=== PATIENT | female | born 1965 | race Caucasian/White ===

== ENCOUNTER 2024-07-27 11:04 | Emergency (ER) | payer MEDICAID, OTHER ==
[~2024-07-27] VITALS: Ht 157.5 cm; Wt 72.7 kg
[2024-07-27 11:07] VITALS: TEMP 98.6
[2024-07-27] MEDS: ACETAMINOPHEN 500 MG TABLET PO ONE (12:37)
[2024-07-27] MEDS: METHOCARBAMOL 500 MG TABLET PO ONE (12:37)
[2024-07-27] MEDS: KETOROLAC TROMETHAMINE 60 MG/2 ML VIAL IM ONE (12:37)
[2024-07-27 13:00] VITALS: BP 135/84; PULSE 72; RESP 16; O2SAT 96
[2024-07-27] MEDS ORDERED: METH-659 PO (13:54)
[2024-07-27] MEDS ORDERED: IBUP-1554 PO (13:54)
[2024-07-27] MEDS ORDERED: ACET-66 PO (13:54)
== END 2024-07-27 14:54 | disposition home or self-care (01) ==
LOC: EMS 11:04
DX: M62.830 Muscle spasm of back (principal); M19.90 Unspecified osteoarthritis, unspecified site; I10 Essential (primary) hypertension; Z98.890 Other specified postprocedural states
CPT/HCPCS: 99283; 72100; 96372; J1885

== ENCOUNTER 2024-08-03 22:48 | Emergency (ER) | payer OTHER ==
[~2024-08-03] VITALS: Ht 160 cm; Wt 68.2 kg
[~2024-08-03 22:48] MED LIST: ACET-66 PO; IBUP-1554 PO; METH-659 PO
[2024-08-03 22:52] VITALS: TEMP 98.4
[2024-08-04] MEDS: KETOROLAC TROMETHAMINE 30 MG/ML VIAL IM ONE (00:20)
[2024-08-04] MEDS: DIAZEPAM 5 MG TABLET PO ONE (00:21)
[2024-08-04] MEDS: LIDOCAINE 5% TRANSDERMAL PATCH TD ONE (00:21)
[2024-08-04 00:50] VITALS: BP 141/80; PULSE 64; RESP 18; O2SAT 96
[2024-08-04] MEDS ORDERED: DIAZ-328 PO (01:42)
== END 2024-08-04 02:06 | disposition home or self-care (01) ==
LOC: EMS 22:49
DX: M62.830 Muscle spasm of back (principal); I10 Essential (primary) hypertension; Z98.890 Other specified postprocedural states
CPT/HCPCS: 99283; 96372; J1885